=== PATIENT | female | born 1985 ===

== ENCOUNTER 2025-06-03 09:31 | Day surgery (SDC) | payer OTHER ==
[2025-06-01 13:57] VITALS: BMI 30.9
[2025-06-03] MEDS ORDERED: Lidocaine 1% PF 5 ML VIAL ONE (10:33)
[2025-06-03] MEDS ORDERED: Ondansetron PF 4 MG/2 ML Vial ONE (10:33)
[2025-06-03] MEDS ORDERED: PROPOFOL 20 ML ONE ×2 (10:33→10:54)
[2025-06-03] MEDS ORDERED: CEFAZOLIN 2 GM VIAL ONE (10:42)
== END 2025-06-03 13:39 | disposition home or self-care (01) ==
LOC: SDC 09:31
PROVIDERS: ATTEND Orthopaedic Surgery
PROC: 01N54ZZ Release Median Nerve, Percutaneous Endoscopic Approach (ICD-10-PCS; principal; 2025-06-03)
DX: G56.03 Carpal tunnel syndrome, bilateral upper limbs (principal); F41.9 Anxiety disorder, unspecified; Z87.59 Personal history of other complications of pregnancy, childbirth and the puerperium; Z88.5 Allergy status to narcotic agent; Z88.8 Allergy status to other drugs, medicaments and biological substances; Z79.899 Other long term (current) drug therapy
CPT/HCPCS: A6223; J0665; J1100; J2250; J2405; J2704; J3010